=== PATIENT | female | born 1945 | race Caucasian/White ===

== ENCOUNTER 2023-05-15 06:44 | Observation (INO) ==
--- NOTE | 2023-04-11 11:44 | PAT Medication Instructions ---
Medication Instructions Date of Service April 11, 2023 Home Medications amlodipine 10 mg tablet (Norvasc) 10 mg PO QAM apixaban 5 mg tablet (Eliquis) 5 mg PO BID atorvastatin 40 mg tablet (Lipitor) 40 mg PO QAM levothyroxine 50 mcg tablet 50 mcg PO QAM losartan 25 mg tablet (Cozaar) 25 mg PO QAM metformin 500 mg tablet 500 mg PO BID ASK your prescriber and surgeon apixaban 5 mg tablet (Eliquis) 5 mg PO BID (in order to get spinal anesthesia- will need to hold Eliquis/apixaban at least 72 hours prior to surgery) DO NOT take the morning of surgery losartan 25 mg tablet (Cozaar) 25 mg PO QAM metformin 500 mg tablet 500 mg PO BID Take morning of surgery With a small sip of water, OTHERWISE NOTHING TO EAT OR DRINK AFTER MIDNIGHT: amlodipine 10 mg tablet (Norvasc) 10 mg PO QAM atorvastatin 40 mg tablet (Lipitor) 40 mg PO QAM levothyroxine 50 mcg tablet 50 mcg PO QAM Take evening before surgery metformin 500 mg tablet 500 mg PO BID Other Notes If you have any questions please call us at [phone] or [phone] or [phone] or [phone]
--- NOTE | 2023-04-16 15:15 | Anesthesiology Consultation ---
Date of Service April 16, 2023 Assessment & Plan (1) Encounter for pre-operative examination: - awaiting echocardiogram. - per cardiology, there is no previous echocardiogram on file. Patient will need echocardiogram prior to surgery. Patient made aware at PAT visit. Optimization form to be faxed to cardiology. Case discussed with Dr. Rossi in detail who advised patient does not need cardiology evaluation prior to surgery if echocardiogram is not significantly abnormal. Surgeon's office made aware. - check BSG am DOS. - upcoming 05/02/23 Dr. Raciel Arana medical pre-operative evaluation. - PAT testing to be faxed to PCP and cardiology for continuity of care. - cardiology office visit 12/2021 with recommendation for patient to f/u in 1 year. Note and case discussed with Dr. Rossi who advised patient needs updated echocardiogram as above. Cardiology office relayed they do not have a stress, echo, cardiac catheterization or carotid imaging on patient. - Eliquis instructions: In order for spinal or epidural anesthesia, Eliquis needs to be stopped 72 hours/3 days before surgery. Patient will check if this is okay with doctor that prescribes this to her. - Outpatient joint assessment: Patient is currently scheduled for inpatient pathway. If re-evaluated and patient/surgeon requests outpatient pathway, patient is not recommended candidate for outpatient joint program from anesthesia standpoint. Chart Review Chart Review: Pending: Refer to Additional Notes / Consult section and Patient seen in Pre Admission Testing Teaching & Discussion Pre-Anesthesia Teaching/Discussion Notes: Instructed NPO after midnight before surgery, except medications with 15 cc of water. Medication instructions provided according to the PAT guidelines. History Surgery Operation Date: 05/15/23 11:35 Proposed Procedures p Right Total Knee Arthroplasty - Jackson Ferrara DO Height/Weight Height: 5 ft 3 in Weight: 98.9 kg Allergies Allergy/AdvReac Type Severity Reaction Status Date / Time No Known Allergies Allergy Verified 04/10/23 13:45 Medications Home Medications Medication Instructions Recorded Confirmed Last Taken amlodipine 10 mg tablet (Norvasc) 10 mg PO QAM 04/10/23 04/10/23 Unknown apixaban 5 mg tablet (Eliquis) 5 mg PO BID 04/10/23 04/10/23 Unknown atorvastatin 40 mg tablet (Lipitor) 40 mg PO QAM 04/10/23 04/10/23 Unknown levothyroxine 50 mcg tablet 50 mcg PO QAM 04/10/23 04/10/23 Unknown losartan 25 mg tablet (Cozaar) 25 mg PO QAM 04/10/23 04/10/23 Unknown metformin 500 mg tablet 500 mg PO BID 04/10/23 04/10/23 Unknown Past Medical History Medical History History of staph infection 2020, right great toe GERD (gastroesophageal reflux disease) infrequent, stable per pt Vertigo controlled, stable per pt History of gout last flare several yrs ago History of degenerative disc disease Cervical polyp hx Hypothyroidism DM type 2 (diabetes mellitus, type 2) NIDDM HLD (hyperlipidemia) HTN (hypertension) controlled, stable per pt Cardiac murmur denies previous echo Atrial fibrillation on Eliquis. Follows with Dr. Brady [facility] cardiology. Patient denies h/o stroke, seizures, heart attack, heart failure, blood clots/DVTs or blood transfusions. Exercise / Class Metabolic Activity II 4-5 Yardwork/Stairs/Walk up hill (denies chest discomfort or shortness of breath with 1 FOS) Past Family History Family History Other No family history of adverse response to anesthesia Past Surgical History Surgical History History of left knee replacement 2004 History of tooth extraction History of cataract surgery History of cervical polypectomy Past Anesthesia History No Hx of Anesthesia Complications and No Family Hx of Anesthesia Complications History of PONV No Hx of PONV and No Hx of Motion Sickness Social History Smoking Status: Never smoker Do You Dip or Chew Tobacco: No Hx Alcohol Use: Yes alcohol intake frequency: holidays/special occasions only Hx Substance Use: No substance use type: does not use Review of Systems Snoring, denies witnessed apneas. Patient denies chest pain, shortness of breath, dyspnea on exertion, presyncope, fever, chills, cough, wheezing, or palpitations. Physical Exam Vital Signs Vitals BP 126/81 P 56 TEMP 98.2 SP02 94% on RA RESP 17 Physical Patient resting comfortably in chair in no acute distress, alert and oriented, responding appropriately throughout visit Full cervical extension range of motion without pain TMD 3.5 finger breadths Mallampati Score 2 Dentition: intact, denies chipped or loose teeth, caps/crowns, implants or bridges Lungs: normal respiratory effort. Good air movement, clear throughout to auscultation, no adventitious breath sounds Cardiac: regular rate and rhythm, 2/6 systolic murmur-no gallops or rubs Carotid arteries: negative bruit bilat Lab Results Anesthesia Preop Results Results Anesthesia Widget: WBC 7.14 K/ul (4.8-10.8) 04/16/23 Hgb 14.0 g/dl (12.0-16.0) 04/16/23 Hct 41.2 % (37.0-47.0) 04/16/23 Plt 146 K/uL (130-400) 04/16/23 Na 140 mmol/L (136-145) 04/16/23 K 4.4 mmol/L (3.5-5.1) 04/16/23 Cl 106 mmol/L (98-107) 04/16/23 CO2 29 mmol/L (21-32) 04/16/23 BUN 15 mg/dl (6-23) 04/16/23 Creat 0.78 mg/dl (0.6-1.2) 04/16/23 Glucose Level 93 mg/dl (70-99(Fasting)) 04/16/23 PT 10.5 Seconds (9.0-12.0) 04/16/23 PTT 29 Seconds (21-31) 04/16/23 INR 1.0 (0.9-1.1) 04/16/23 HA1c 5.9 % (4.5-5.6) H 04/16/23 Urine Color Yellow 04/16/23 Urine Appearance Clear (Clear) 04/16/23 Urine pH 5.5 (4.5-7.5) 04/16/23 Urine Specific [place] 1.013 (1.000-1.030) 04/16/23 Urine Protein Negative (Negative) 04/16/23 Urine Glucose (UA) Negative (Negative) 04/16/23 Urine Ketones Negative (Negative) 04/16/23 Urine Blood Trace (Negative) H 04/16/23 Urine Nitrite Negative (Negative) 04/16/23 Urine Bilirubin Negative (Negative) 04/16/23 Urine Urobilinogen Negative (Negative) 04/16/23 Urine Leukocyte Esterase 2+ (Negative) H 04/16/23 Urine WBC (Auto) 10-30 /hpf (0-5) H 04/16/23 Urine RBC (Auto) 0-4 /hpf (0-4) 04/16/23 Urine Hyaline Casts (Auto) 0 /lpf (0-5) 04/16/23 Urine Epithelial Cells (Auto) 10-20 /lpf (0-5) H 04/16/23 Urine Bacteria (Auto) Negative (Negative) 04/16/23 Blood Type O Negative 04/16/23 Antibody Screen NEGATIVE 04/16/23 Testing Electrocardiogram Date: 04/16/23 Sinus bradycardia with 1st degree AV block, rate 57 bpm Low voltage QRS Nonspecific T wave abnormality
--- NOTE | 2023-04-18 10:26 | History & Physical Report ---
Date of Service April 18, 2023 date of surgery: 05/15/23 Procedure: Right Total Knee Arthroplasty Surgeon: Jackson Ferrara, DO Assessment & Plan (1) Arthritis of right knee: Plan: Patient presents for evaluation of continued right knee pain, is been ongoing for many years now gradually affecting her daily activities including walking standing using stairs. Reviewed her x-rays which show advanced degenerative changes to her right knee, she has a history of a left total knee arthroplasty [place] [address]ara. At this point would recommend right total knee arthroplasty, we will plan on [employer] patient-matched right total knee. She does live alone therefore would recommend overnight stay at the hospital and she will be staying with her daughter postoperatively. She also takes Eliquis for A-fib, would recommend cardiac clearance prior to the surgery. She otherwise has no other questions or concerns The risks and benefits have been discussed including, but not limited to, risk of infection, nerve injury, stiffness, loss of motion, failure to improve, etc. Reasonable outcomes and options of treatment were discussed. An explanation of appropriate alternatives to the procedure that may be advantageous were discussed and their risks and benefits, as well as the risks and benefits of not proceeding with treatment. I offered to answer any additional inquiries concerning the treatment involved. All the patient's questions were answered. The patient is agreeable, understanding of the treatment plan and alternatives, and wishes to proceed with the treatment plan. History of Present Illness Chief Complaint: Right knee pain Primary Care Provider: Raciel Chaves is a pleasant 77-year-old female who presented for preop evaluation prior to upcoming right total knee arthroplasty. She is a longstanding history of right knee pain which is gradually worsened and is now affecting her daily activities including walking standing using stairs. She is a history of a left total knee replacement many years ago. She takes anticoagulants and therefore unable to take anti-inflammatories, she has used Tylenol for discomfort as well as injections in the knee with no improvement. This point time is failed conservative measures and wishes to proceed with a right total knee arthroplasty Allergies Allergy/AdvReac Type Severity Reaction Status Date / Time No Known Allergies Allergy Verified 04/10/23 13:45 Home Medications Medication Instructions Recorded Confirmed Type amlodipine 10 mg tablet (Norvasc) 10 mg PO QAM 04/10/23 04/10/23 History apixaban 5 mg tablet (Eliquis) 5 mg PO BID 04/10/23 04/10/23 History atorvastatin 40 mg tablet (Lipitor) 40 mg PO QAM 04/10/23 04/10/23 History levothyroxine 50 mcg tablet 50 mcg PO QAM 04/10/23 04/10/23 History losartan 25 mg tablet (Cozaar) 25 mg PO QAM 04/10/23 04/10/23 History metformin 500 mg tablet 500 mg PO BID 04/10/23 04/10/23 History Past Med/Surg History Medical History History of staph infection 2020, right great toe GERD (gastroesophageal reflux disease) infrequent, stable per pt Vertigo controlled, stable per pt History of gout last flare several yrs ago History of degenerative disc disease Cervical polyp hx Hypothyroidism DM type 2 (diabetes mellitus, type 2) NIDDM HLD (hyperlipidemia) HTN (hypertension) controlled, stable per pt Cardiac murmur denies previous echo Atrial fibrillation on Eliquis. Follows with Dr. Brady [facility] cardiology. 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 Basic Required: No Beliefs That Will Affect Care: None Current Living Situation: Alone Feels Safe at Home: Yes Assistive Devices: None Review of Systems Review of Systems: All systems reviewed & are unremarkable except as noted in HPI & below Constitutional: no fever, no chills and no sweats Respiratory: no cough and no dyspnea Cardiovascular: no chest pain, no dyspnea and no orthopnea Gastrointestinal: no abdominal pain, no nausea and no vomiting Musculoskeletal: as per Subjective / HPI Physical Exam Physical Exam: HT 5ft 3in WT: 98.9kg Constitutional: WD/WN, vitals as above no acute distress Respiratory: normal respiratory effort, lungs clear to auscultation no respiratory distress, no labored breathing and does not use accessory muscles Cardiovascular: RRR, no murmur, no edema Gastrointestinal (Abdomen): normal bowel sounds, soft, nontender, no hepatosplenomegaly Musculoskeletal: Knee: + knee abnormal to inspection (RIGHT KNEE), + effusion (+1 effusion), + limited ROM of knee (ROM 0/3/110), + knee ROM with crepitation, + joint line tenderness (medial joint line) and + Emanuel's sign positive; no deformity, no skin erythema, no ecchymosis, no valgus laxity, no varus laxity, anterior drawer test negative, Steph's sign negative and pivot shift test negative Results & Data Results & Data Diagnostic Findings Right Knee X-ray: Right knee series showing advanced degenerative changes to the right knee, narrowing of the medial compartment and patello-femoral joint with patellar spurring noted, findings showing joint space narrowing of the medial compartment and patello-femoral joint, osteophyte formation and subchondral sclerosis noted. overall varus alignment. no acute bony pathology noted.
[~2023-05-15 06:44] MED LIST: ACETAMINOPHEN 500 MG TAB PO SCH; BUPIVACAINE 0.5 % 5 MG/1 ML PF 10ML VIAL ONE; CeleBREX 200 MG CAP PO SCH; EPINEPHrine INJ 1 MG/ML AMP ONE; FAMOTIDINE 20 MG TAB PO SCH; GABAPENTIN 300 MG CAP PO SCH; LR 500ML BOLUS, THEN 15ML/HR IV SCH; LR 60ML/HR IV SCH; ROPIV 0.5% 246mg, Ketorolac 30mg, EPINEPHrine 0.5mg in NSS INFIL SCH; ROPIVACAINE 0.5% 5 MG/ML 30 ML VIAL ONE; ceFAZolin 2000MG 2,000 MG/15 ML SYR IV SCH; dexAMETHasone**PF** 10 MG/ML VIAL IV SCH
[2023-05-15] MEDS ORDERED: PROPOFOL IV EMULSION 10 MG/ML 20 ML VIAL IV ONE (06:56)
[2023-05-15] MEDS ORDERED: ONDANSETRON INJ 2 MG/ML 2 ML VIAL ONE (06:56)
[2023-05-15] MEDS ORDERED: MIDAZOLAM HCL 1 MG/ML 2ML VIAL ONE (06:56)
[2023-05-15] MEDS ORDERED: fentaNYL citrate PF 100 MCG/2 ML VIAL ONE (06:56)
[2023-05-15] MEDS ORDERED: LIDOCAINE 2% 2 ML VIAL/AMP(20MG/ML) INFIL ONE (06:56)
[2023-05-15] MEDS ORDERED: ORTHO JOINT ANESTHETIC ONE (07:12)
--- NOTE | 2023-05-15 07:26 | History & Physical Bridge Note ---
Date of Service May 15, 2023 History & Physical Bridge Note I have examined the patient, reviewed the History & Physical and in the interval since the performance of the History & Physical I have noted the following changes of clinical significance: no changes noted
[2023-05-15] MEDS ORDERED: TRANEXAMIC ACID / 0.7% NACL 1000MG/100ML BAG IV ONE (08:36)
[2023-05-15] MEDS ORDERED: TRANEXAMIC ACID / 0.7% NACL 1,000 MG/100 ML BAG IV ONE ×2 (08:40)
[2023-05-15] MEDS ORDERED: FLUMAZENIL 0.1 MG/1 ML 10 ML VIAL IV PRN (09:43)
[2023-05-15] MEDS ORDERED: PROMETHAZINE HCL 12.5 MG in SODIUM CHLORIDE 0.9% 50 ML IV PRN (09:43)
[2023-05-15] MEDS ORDERED: ATROPINE SULFATE 0.1 MG/ML 10ML SYR IV PRN (09:43)
[2023-05-15] MEDS ORDERED: NALOXONE HCL 0.4 MG/1 ML VIAL/CARP IV PRN ×2 (09:43→11:58)
[2023-05-15] MEDS ORDERED: ONDANSETRON INJ 2 MG/ML 2 ML VIAL IV PRN ×2 (09:43→11:58)
[2023-05-15] MEDS ORDERED: fentaNYL citrate PF 100 MCG/2 ML VIAL IV PRN (09:43)
[2023-05-15] MEDS ORDERED: ePHEDrine sulfate 50 MG/ML AMP IV PRN (09:43)
--- NOTE | 2023-05-15 10:06 | Operative Report ---
Post Operative Report Pre & Post Diagnosis Operation Date: 05/15/23 08:25 Pre-Op Diagnosis: Right Knee Osteoarthritis Post-Op Diagnosis: Right Knee Osteoarthritis I identified the patient and participated in the time-out.: Yes Procedure Operation Date: 05/15/23 08:25 Actual Procedures p Right Total Knee Arthroplasty(Right)Utilizing [employer] journey 2 patient-matched total knee arthroplasty the size femur 4 tibia 4 poly 10 patella 29 eliceo - Jackson Ferrara DO Surgeon Jackson Ferrara DO Sampler And Test Preparer Josué DOMINGUEZ Estimated Blood Loss 5 Findings Consistent with Post-Op Diagnosis Patient presents with severe end-stage tricompartmental degenerative joint disease nonresponse to conservative management eburnated [id number] marginal osteophytes moderate to large effusion Specimens Bone and cartilage Drains Medium bore Hemovac Anesthesia Type MAC Spinal Regional Complications none Disposition Accompanied Patient To Recovery: No Disposition: Recovery Room Indications Patient presents severe end-stage tricompartmental degenerative joint disease nonresponse to conservative management above intraoperative findings were noted at time of surgery. Patient's failed attempted conservative management occluding physical therapy anti-inflammatories relative rest activity modification corticosteroid injection viscosupplementation Description of Procedure After proper prepping and draping of the Right lower extremity anterior midline incision was made over the region of the extensor extensor mechanism after meticulous hemostasis was obtained and maintained in subcutaneous tissues a medial parapatellar incision was made The patella was subluxed lateralward the medial lateral gutter were cleaned from any hypertrophic synovitis and scar tissue of the distal femoral block was placed and the distal femoral osteotomy cut was made subsequently the chamfers anterior and posterior osteotomy cuts were made utilizing the 4-in-1 block the tibia was subsequently subluxed anteriorward medial and ateral meniscal remnants were excised in their entirety remnants of the anterior and posterior cruciate ligaments were excised in their entirety excellent exposure of the proximal tibia was obtained the tibial osteotomy guide was placed on the proximal tibial osteotomy cut was made once again the knee was irrigated with copious amounts of sterile saline solution the patella was subsequently everted lateralward thickened scar tissue around the patella was removed the patella was subsequently cut utilizing a freehand technique and was drilled prepared for final preparation and placement of patella socially flexion-extension gaps were checked and the equal and symmetric trials were placed to the appropriate femoral and tibial trials with poly-spacer being placed for equal flexion and extension gaps and full range of motion including extension to 0 and flexion to 140 the trial components after having been taken to recovery range of motion was subsequently removed meticulous hemostasis was obtained and maintained subsequently a knee block injection of joint cocktail including ropivacaine 0.5% 150 mg. Bupivacaine 0.5% epinephrine 1-200,030 mL's toradol 30 mg dexamethasone 4 mg ketamine 10 mg clonidine 100 micrograms normal saline solution 30 mg was infiltrated into the soft tissues of the posterior knee medial lateral gutters and periosteal synovium special attention was paid to protect neurovascular structures at all times subsequently trial components having been removed the knee was irrigated with sterile saline solution. debris was removed the proximal tibia was subsequently prepared and was made ready for the placement of the tibial component tibial component was also cemented and tamped into position the femoral component was subsequently placed and cemented in the position the patellar component was subsequently cemented in position because hemostasis once again obtained and maintained wound having been thoroughly irrigated with debridement and debridement lavage was performed as well as a medial parapatellar incision closed with #1 Vicryl in in terrupted fashion subcutaneous was closed with #2 Vicryl skin was closed with skin clips. PA-C was necessary for prepping and drapping as well as wound closure of deep fascia Sub cutaneous tissue and skin and was necessary for the case. A sterile compressive dressing was placed patient was taken to recovery in stable condition of report dictated by Josias I attest to the content of the Intraoperative Record and any orders documented therein. Any exceptions are noted below.Due to the complex nature of the procedure, the entire surgery was performed with the operational assistance of ALBERTO Moyer. The foundation assistant, under direct supervision, was involved in the actual performance of all aspects of the surgical procedure including hemostasis, tissue retraction and incision, instrument management, patient positioning, and wound closure. I attest to the content of the Intraoperative Record and any orders documented therein. Any exceptions are noted below.
--- NOTE | 2023-05-15 11:19 | Operative Report ---
Post Operative Report Pre & Post Diagnosis Operation Date: 05/15/23 08:25 Pre-Op Diagnosis: Right Knee Osteoarthritis Post-Op Diagnosis: Right Knee Osteoarthritis I identified the patient and participated in the time-out.: Yes Procedure Operation Date: 05/15/23 08:25 Actual Procedures p Right Total Knee Arthroplasty(Right) utilizing [employer] journey 2 patient-matched total knee arthroplasty size femur 4 tibia 3 poly 11 patella 29 eliceo- Jackson Ferrara DO Surgeon Jackson Frerara DO Resident Care Coordinator Josué DOMINGUEZ Estimated Blood Loss 5 Findings Consistent with Post-Op Diagnosis Patient presents with severe end-stage DJD the above intraoperative findings were noted subchondral sclerosis marginal osteophytes 10 degree flexion contracture moderate to large effusion Specimens Bone and Drains Medium bore Hemovac Anesthesia Type MAC Spinal Regional Complications none Disposition Accompanied Patient To Recovery: No Disposition: Recovery Room Indications Patient presents with severe end-stage DJD nonresponse to conservative management occluding physical therapy anti-inflammatories relative rest activity modification corticosteroid injection viscosupplementation above intraoperative findings were noted Description of Procedure After proper prepping and draping of the left lower extremity anterior midline incision was made over the region of the extensor extensor mechanism after meticulous hemostasis was obtained and maintained in subcutaneous tissues a medial parapatellar incision was made The patella was subluxed lateralward the medial lateral gutter were cleaned from any hypertrophic synovitis and scar tissue of the distal femoral block was placed and the distal femoral osteotomy cut was made subsequently the chamfers anterior and posterior osteotomy cuts were made utilizing the 4-in-1 block the tibia was subsequently subluxed anteriorward medial and ateral meniscal remnants were excised in their entirety remnants of the anterior and posterior cruciate ligaments were excised in their entirety excellent exposure of the proximal tibia was obtained the tibial ost eotomy guide was placed on the proximal tibial osteotomy cut was made once again the knee was irrigated with copious amounts of sterile saline solution the patella was subsequently everted lateralward thickened scar tissue around the patella was removed the patella was subsequently cut utilizing a freehand technique and was drilled prepared for final preparation and placement of patella socially flexion-extension gaps were checked and the equal and symmetric trials were placed to the appropriate femoral and tibial trials with poly-spacer being placed for equal flexion and extension gaps and full range of motion including extension to 0 and flexion to 140 the trial components after having been taken to recovery range of motion was subsequently removed meticulous hemostasis was obtained and maintained subsequently a knee block injection of joint cocktail including ropivacaine 0.5% 150 mg. Bupivacaine 0.5% epinephrine 1-200,030 mL's toradol 30 mg dexamethasone 4 mg ketamine 10 mg clonidine 100 micrograms normal saline solution 30 mg was infiltrated into the soft tissues of the posterior knee medial lateral gutters and periosteal synovium special attention was paid to protect neurovascular structures at all times subsequently trial components having been removed the knee was irrigated with sterile saline solution. debris was removed the proximal tibia was subsequently prepared and was made ready for the placement of the tibial component tibial component was also cemented and tamped into position the femoral component was subsequently placed and cemented in the position the patellar component was subsequently cemented in position because hemostasis once again obtained and maintained wound having been thoroughly irrigated with debridement and debridement lavage was performed as well as a medial parapatellar incision closed with #1 Vicryl in interrupted fashion subcutaneous was closed with #2 Vicryl skin was closed with skin clips. PA-C was necessary for prepping and drapping as well as wound closure of deep fascia Sub cutaneous tissue and skin and was necessary for the case. A sterile compressive dressing was placed patient was taken to recovery in stable condition of report dictated by Josias I attest to the content of the Intraoperative Record and any orders documented therein. Any exceptions are noted below.Due to the complex nature of the pro cedure, the entire surgery was performed with the operational assistance of ALBERTO Moyer the accountant assistant, under direct supervision, was involved in the actual performance of all aspects of the surgical procedure including hemostasis, tissue retraction and incision, instrument management, patient positioning, and wound closure. I attest to the content of the Intraoperative Record and any orders documented therein. Any exceptions are noted below.
--- NOTE | 2023-05-15 11:34 | Anesthesiology Progress Note ---
Date of Service May 15, 2023 Anesthesia Post Procedure Vital Signs Vital Signs: Temp Pulse Pulse Resp BP Pulse Ox O2 Del Method 05/15/23 11:15 36.4 C L 64 16 119/54 L 96 Room Air 05/15/23 11:05 67 21 120/55 L 99 Oxymask 05/15/23 10:55 66 16 125/49 L 99 Oxymask 05/15/23 10:45 66 17 111/53 L 100 Oxymask 05/15/23 10:36 36.4 C L 70 12 115/50 L 98 Oxymask 05/15/23 07:22 37.1 C 83 20 142/52 H 96 Room Air O2 Flow Rate 05/15/23 11:15 0 05/15/23 11:05 2 05/15/23 10:55 3 05/15/23 10:45 4 05/15/23 10:36 6 05/15/23 07:22 Pain Intensity Right Knee: Pain Intensity: 0 Transfer of Care Handoff Completed per policy Notes Mental Status: alert / awake / arousable Patient Amnestic to Procedure: Yes Nausea / Vomiting: adequately controlled Pain: adequately controlled Airway Patency, RR, SpO2: stable & adequate BP & HR: stable & adequate Hydration State: stable & adequate Neuraxial Anesthesia: was administered and sensory block is resolving Anesthetic Complications: no major complications apparent
[2023-05-15] MEDS ORDERED: oxyCODONE HCL IR 5 MG TAB (IMMEDIATE RELEASE) PO PRN (11:58)
[2023-05-15] MEDS ORDERED: bisacodyL 10 MG SUPP PR PRN (11:58)
[2023-05-15] MEDS ORDERED: HYDROmorphone INJ 1 MG/ML SYRINGE IV PRN (11:58)
[2023-05-15] MEDS ORDERED: diphenhydrAMINE Capsule 25 MG CAP PO PRN (11:58)
[2023-05-15] MEDS ORDERED: METOCLOPRAMIDE HCL INJ 5 MG/ML 2 ML VIAL IV PRN (11:58)
[2023-05-15] MEDS ORDERED: MAGNESIUM HYDROXIDE SUSP 30 ML UDC PO PRN (11:58)
[2023-05-15] MEDS ORDERED: PHARMACY GLYCEMIC MGMT CONSULT PRN (11:58)
--- NOTE | 2023-05-15 12:10 | Hospitalist Consultation ---
Date of Consultation May 15, 2023 Assessment & Plan (1) S/P right knee surgery: Right total knee arthroplasty with Dr. Ferrara on 05/15/2023 Postop right knee x-ray revealed expected postoperative appearance of total knee arthroplasty Activity: OOB in chair with assistance as tolerated Perioperative antibiotics, DVT PPx, pain management, and fluids per primary team Agree with a.m. CBC, BMP, we will follow PT/OT consulted (2) DM type 2 (diabetes mellitus, type 2): Last A1c at 5.9% on 04/16/2023 Glucose 176 on admission Agree with decision to hold metformin while inpatient T2DM diet Added BSG ACHS while inpatient Adjust regimen as needed (3) Hypothyroidism: Continue levothyroxine (4) HTN (hypertension): Recommend holding amlodipine x 1 day, and restarting on 05/17 Continue losartan (pending a.m. BMP) (5) Atrial fibrillation: Rate controlled SCDs/teds for now; okay from medical standpoint to restart apixaban tomorrow on 05/16 (6) HLD (hyperlipidemia): Continue atorvastatin Plan Agree with medical decision making: Disposition: MedSurg T2DM diet VTE PPx: SCDs/teds for now Thank you for allowing us to persuade in the care of this patient, please reach out with any questions or concerns. Supervising Physician Co-Signing Physician Notes I personally saw and examined the patient. I independently reviewed the pre-op labs, pre-op EKG, problem list, medication list, past medical history and family history. I verified all rosario points and agree with Marquise Verdugo PA-C with the following exceptions and/or additions: 77 year old female POD#0 right total knee arthroplasty. She reports fall to the ground earlier around 8pm. No dizziness, chest pain or dizziness prior to falling - legs just gave way. O/E A&Ox3, HS RRR, no murmurs, Chest CTAB, Abdo SNT, difficulty straightening leg, NV intact distal to operation site A/P VTE/Pain/Bowel management per primary orthopedic team HTN - hold amlodipine until POD#2, can continue losartan tomorrow Otherwise as above History of Present Illness Reason for Consultation: Medical management Requesting Physician: Jackson Ferrara DO Attending Physician: Jackson Ferrara DO History of Present Illness Andie is a pleasant 77yo female with PMH of T2DM, HTN, hypothyroidism, HLD, and A-fib. She presented for a right total knee arthroplasty with Dr. Ferrara on 05/15/2023. Per operative report, EBL was listed as 5 cc, MAC spinal regional anesthesia was used, and medium bore Hemovac drain was placed, and there were no reported intraoperative complications. Patient endorses mild right knee pain at time of consult, which she rates 35/10 prior to receiving her pain medicine. No radiation down the leg or to the back, mild radiation to the right lateral thigh. She denies numbness or tingling in the leg. She characterizes a dull achy pain. Patient reports she has been eating and drinking well postsurgery. She has not tried to use the bathroom yet, nor has a desire to use it. No at home supplemental oxygen use. She reports that she took her regular morning medications as instructed this morning (3 pills); she notes that she has not been taking her Eliquis as instructed, with the last time taken on Thursday 05/11 in anticipation for surgery. She has no new complaints at this time. Per review of patient's vitals, she has been stable postop; SpO2 98% on RA. ROS: Patient endorses mild right knee pain. Patient denies fever, chills, sweating, CARIAS, dizziness, lightheadedness, CP, pleuritic CP, SOB, abdominal pain, N/V/D, urinary s/s, or numbness and tingling in the legs B/L. Allergies Allergy/AdvReac Type Severity Reaction Status Date / Time No Known Allergies Allergy Verified 05/15/23 07:16 Home Medications Medication Instructions Recorded Confirmed Type amlodipine 10 mg tablet (Norvasc) 10 mg PO QAM 04/10/23 05/15/23 History apixaban 5 mg tablet (Eliquis) 5 mg PO BID 04/10/23 05/15/23 History atorvastatin 40 mg tablet (Lipitor) 40 mg PO QAM 04/10/23 05/15/23 History levothyroxine 50 mcg tablet 50 mcg PO QAM 04/10/23 05/15/23 History losartan 25 mg tablet (Cozaar) 25 mg PO QAM 04/10/23 05/15/23 History metformin 500 mg tablet 500 mg PO BID 04/10/23 05/15/23 History acetaminophen 500 mg tablet 1,000 mg (2 x 500 mg) PO Q8 pain 05/16/23 Rx 21 days #126 tabs cefadroxil 500 mg capsule 500 mg PO BID 14 days #28 caps 05/16/23 Rx docusate sodium 100 mg capsule 100 mg PO BID #20 caps 05/16/23 Rx oxycodone 5 mg tablet 5 - 10 mg (1 - 2 x 5 mg) PO Q6H 05/16/23 Rx PRN pain #30 tabs Patient History Medical History (Updated 05/15/23 @ 12:20 by Marquise Verdugo PA-C) GERD (gastroesophageal reflux disease) infrequent, stable per pt History of staph infection 2020, right great toe Vertigo controlled, stable per pt History of gout last flare several yrs ago History of degenerative disc disease Cervical polyp hx Hypothyroidism DM type 2 (diabetes mellitus, type 2) NIDDM HLD (hyperlipidemia) HTN (hypertension) controlled, stable per pt Cardiac murmur denies previous echo Atrial fibrillation on Eliquis. Follows with Dr. [facility] cardiology. 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 Pan Operator Required: No Beliefs That Will Affect Care: None Current Living Situation: Alone Feels Safe at Home: Yes Safety Concerns: Feels Safe At This Time Assistive Devices: None Review of Systems Review of Systems: See HPI above Physical Exam 2 Physical Exam: General: no acute distress; pleasant affect; non-toxic appearing; well- nourished; cooperative HEENT: normocephalic, atraumatic; no scleral icterus; PERRLA w/ EOMs intact; moist mucus membrane; vision and hearing grossly intact Neck: supple; no JVD; no lymphadenopathy; trachea midline Skin: warm, dry without signs of tenting; no cyanosis; no rashes, bruising, lesions, or erythema noted CV: chest wall NTP; RRR; S1/S2 normal; no murmurs/rubs/gallops; pulses intact and symmetric at radial, DP, and PT Lungs: no acute respiratory distress; symmetrical chest wall expansion; clear breath sounds across all lung zazueta w/o adventitious sounds; no wheezing ABD: Soft, NTP; BS present; no rebound/guarding; no ascites; no distention; negative CVA tenderness MSK: no tics or fasciculations; no edema noted in the LEs b/l (SCDs/teds in place); patient demonstrates ability to wiggle toes bilaterally; good pulses in the right foot (neurovascular intact) Neuro: A&Ox3; normal mood and affect; fluent speech; no focal deficits; patient endorses bilateral, symmetric sensation in the feet assessed via light touch at the toes Results & Data Results & Data Vital Signs (Past 12 Hours) Vital Signs Temp Pulse Pulse Resp BP Pulse Ox O2 Del Method 05/15/23 11:15 36.4 C L 64 16 119/54 L 96 Room Air 05/15/23 11:05 67 21 120/55 L 99 Oxymask 05/15/23 10:55 66 16 125/49 L 99 Oxymask 05/15/23 10:45 66 17 111/53 L 100 Oxymask 05/15/23 10:36 36.4 C L 70 12 115/50 L 98 Oxymask 05/15/23 07:22 37.1 C 83 20 142/52 H 96 Room Air O2 Flow Rate 05/15/23 11:15 0 05/15/23 11:05 2 05/15/23 10:55 3 05/15/23 10:45 4 05/15/23 10:36 6 05/15/23 07:22 Laboratory Results Abnormal lab results 05/15/23 05/15/23 05/15/23 Range/Units 07:16 10:39 11:51 POC Glucose 125 H 154 H 176 H (70-99) mg/dl Diagnostic Findings Knee X-Ray 05/15/23 10:42 XR knee RT 1 or 2V routine CLINICAL HISTORY: Surgical Post Op TECHNIQUE: 2 views of the right knee were obtained. Comparison: None available at the time of this dictation. FINDINGS: Patient is status post total knee arthroplasty with expected postsurgical changes including soft tissue swelling and subcutaneous emphysema. No periarticular lucency or hardware fracture is seen. IMPRESSION: Expected postoperative appearance status post placement of total knee arthroplasty. ACT 112: Negative or not required by law. Electronically signed by: Buzz Foster M.D. 05/15/2023 12:25 PM PG Care Time/CCT Total # of Minutes Spent Total Time Spent with Patient: Total time spent is greater than 50% in coordination of care (as documented) at patient's floor/unit and/or counseling patient: [place] [address] IN/OBS CONSULT LVL 3,45M Patient Type New Medical Decision Making Low Complexity Diagnoses S/P right knee surgery Z98.890 DM type 2 (diabetes mellitus, type 2) E11.9 Hypothyroidism E03.9 HTN (hypertension) I10 Atrial fibrillation I48.91 HLD (hyperlipidemia) E78.5
--- NOTE | 2023-05-15 12:26 | XRay Report ---
XR knee RT 1 or 2V routine CLINICAL HISTORY: Surgical Post Op TECHNIQUE: 2 views of the right knee were obtained. Comparison: None available at the time of this dictation. FINDINGS: Patient is status post total knee arthroplasty with expected postsurgical changes including soft tiss ue swelling and subcutaneous emphysema. No periarticular lucency or hardware fracture is seen. IMPRESSION: Expected postoperative appearance status post placement of total knee arthroplasty. ACT 112: Negative or not required by law. Electronically signed by: Buzz Foster M.D. 05/15/2023 12:25 PM
[2023-05-15] MEDS: KETOROLAC TROMETHAMINE 15 MG/ML VIAL IV SCH ×2 (12:39→17:58)
[2023-05-15] MEDS ORDERED: CARBOHYDRATES FOR HYPOGLYCEMIA PO PRN (12:45)
[2023-05-15] MEDS ORDERED: DEXTROSE 50% 50 ML SYRINGE IV PRN (12:45)
[2023-05-15] MEDS ORDERED: GLUCOSE 40% GEL 15 GM TUBE PO PRN (12:45)
[2023-05-15] MEDS ORDERED: GLUCOSE 10 TAB/TUBE PO PRN (12:45)
[2023-05-15] MEDS ORDERED: GLUCAGON FOR INJ 1 MG VIAL IM PRN (12:45)
[2023-05-15] MEDS: SODIUM CHLORIDE 0.9% 1,000 ML IV SCH ×2 (12:59→20:20)
[2023-05-15] MEDS: INSULIN ASPART PER UNIT CHARGE SC SCH ×3 (13:05→20:58)
[2023-05-15] MEDS: ACETAMINOPHEN 500 MG TAB PO SCH ×2 (13:43→21:00)
--- NOTE | 2023-05-15 14:23 | Pharmacy Report ---
Pharmacy Glycemic Short Note 2 - Date of Service May 15, 2023 - Glycemic Short BSG Results (Last 24 hours): 05/15/23 05/15/23 05/15/23 07:16 10:39 11:51 POC Glucose 125 H 154 H 176 H OUTPATIENT ANTIDIABETIC REGIMEN: * Metformin 500 mg PO BID * HbA1c = 5.9% on 04/16/23 ASSESSMENT: * 77 y/o F admitted for R TKA today. She has history of Type 2 diabetes well controlled on oral Metformin only at home. * Patient received IV Dexamethasone 10 mg x 1 dose this AM pre-op. Expecting BSGs to rise later today. * Novolog ordered with lunch today with loose parameters (stress between 1 and 2). * Basal insulin ordered on a scale based on BSG with dinner today. PLAN FOR INPATIENT GLYCEMIC CONTROL: * Hold outpatient oral diabetes medications * Basal insulin * Lantus 0-10 units SQ with dinner based on BSG (see EMR for details) * Bolus insulin * NovoLog per scale ACHS or Q6hrs while NPO * Goal Range: Low 110 mg/dL - High 140 mg/dL * Correction Factor: 30 mg/dL/unit * Nutritional / Prandial insulin per carb ratio of 1 unit per 10 grams CHO consumed
[2023-05-15] MEDS ORDERED: LANTUS PER UNIT CHARGE SC SCH (17:00)
[2023-05-15] MEDS: ceFAZolin 2000MG 2,000 MG/15 ML SYR IV SCH (17:58)
[2023-05-15] MEDS: DOCUSATE SODIUM 100 MG CAP PO SCH (19:19)
[2023-05-15] MEDS ORDERED: SENNA 8.6 MG TAB PO SCH (21:00)
[2023-05-16] MEDS: KETOROLAC TROMETHAMINE 15 MG/ML VIAL IV SCH ×2 (00:18→05:22)
[2023-05-16] MEDS: ceFAZolin 2000MG 2,000 MG/15 ML SYR IV SCH (00:18)
[2023-05-16] MEDS: ACETAMINOPHEN 500 MG TAB PO SCH (05:22)
[2023-05-16 06:17] LABS: Hematocrit (blood only) 36.2 % (37.0-47.0); Hemoglobin 12.3 g/dl (12.0-16.0); Mean Corpuscular Hemoglobin 31.1 pg (25.0-34.0); Mean Corpuscular Volume 91.6 fL (80.0-100.0); Platelet Count 132 K/uL (130-400); RDW Coefficient of Variation 12.1 % (11.5-14.5); RDW Standard Deviation 40.7 fL (36.4-46.3); Red Blood Count 3.95 M/uL (4.20-5.40); White Blood Count 15.16 K/ul (4.8-10.8)
[2023-05-16] MEDS ORDERED: LEVOTHYROXINE SODIUM 50 MCG TABLET PO SCH (06:30)
[2023-05-16 06:36] LABS: BUN Creatinine Ratio 24.4 (10-20); Calcium 8.7 mg/dl (8.6-10.3); Creatinine Clr Calc Pharmacy 70.5 ml/min; Est GFR (African American) 86.2 ml/min; Est GFR (Non-African American) 74.4 ml/min; Potassium 4.2 mmol/L (3.5-5.1)
--- NOTE | 2023-05-16 06:55 | Orthopedic Progress Note ---
Date of Service May 16, 2023 Assessment & Plan (1) History of total right knee replacement: Plan: POD #1 s/p Right TKA pt/ot dvt proph with JUDY/SCD/resume Eliquis plan for d/c home with HHPT Admission and Anticipated Discharge Date Admission Date: May 15, 2023 Subjective POD #1 s/p Right TKA Review of Systems Constitutional: no fever, no chills and no sweats Respiratory: no cough and no dyspnea Cardiovascular: no chest pain and no dyspnea Gastrointestinal: no abdominal pain, no nausea and no vomiting Physical Exam Physical Exam: Vital Signs Temp 36.5 C 05/16/23 03:28 Pulse 65 05/16/23 03:28 Resp 16 05/16/23 03:28 BP 117/60 05/16/23 03:28 Pulse Ox 94 05/16/23 03:28 O2 Del Method Room Air 05/16/23 03:28 O2 Flow Rate 0 05/15/23 11:15 Intake & Output 05/15/23 05/15/23 05/16/23 06:59 18:59 06:59 Intake Total 200 / 2048.333 1848.333 / 2048.33 3 Output Total 650 / 2175 1525 / 2175 Balance -450 / -126.667 323.333 / -126.667 Weight 100.6 kg Intake: IV 200 / 3875.869 9135.333 / 1848.33 3 Lactated Ringe r's 1,000 ml @ 15 0 / 0 mls/hr IV .Q24 H GAUTAM Rx#: [id number] Sodium Chlorid e 0.9% 1,000 ml @ 1648.333 / 1648.33 3 100 mls/hr IV .Q10H GAUTAM Rx#: [id number] Tranexamic Aci d / 0.7% NaCl 1, 200 / 200 000 mg In 100 ml @ 600 mls/hr IV ONE ONE Rx# :[id number] Oral 200 / 200 Output: Urine 600 / 1900 1300 / 1900 Drain Output 50 / 275 225 / 275 Right Knee 50 / 275 225 / 275 Other: # Unmeasured Voi ds 1 Weight Measureme nt Method Standing Scale Musculoskeletal: Right Leg: NVDI, calf SNT, negative olya sign. DP palpable, able to wiggle toes/ankle movement without difficulty. dressing clean dry and intact. Results & Data Vital Signs (Past 12 Hours) Vital Signs Temp Pulse Resp BP Pulse Ox O2 Del Method 05/16/23 03:28 36.5 C 65 16 117/60 94 Room Air 05/15/23 23:36 36.5 C 64 16 99/60 L 95 Room Air 05/15/23 19:25 36.3 C L 50 L 16 118/62 96 Room Air Laboratory Results Laboratory Results WBC 15.16 K/ul (4.8-10.8) H 05/16/23 05:29 RBC 3.95 M/uL (4.20-5.40) L 05/16/23 05:29 Hgb 12.3 g/dl (12.0-16.0) 05/16/23 05:29 Hct 36.2 % (37.0-47.0) L 05/16/23 05:29 MCV 91.6 fL (80.0-100.0) 05/16/23 05:29 MCH 31.1 pg (25.0-34.0) 05/16/23 05:29 MCHC 34.0 g/dL (32.0-36.0) 05/16/23 05:29 RDW Std Deviation 40.7 fL (36.4-46.3) 05/16/23 05:29 RDW Coeff of [place] 12.1 % (11.5-14.5) 05/16/23 05:29 Plt Count 132 K/uL (130-400) 05/16/23 05:29 MPV 10.0 fL (9.4-12.4) 05/16/23 05:29 Sodium 138 mmol/L (136-145) 05/16/23 05:29 Potassium 4.2 mmol/L (3.5-5.1) 05/16/23 05:29 Chloride 107 mmol/L (98-107) 05/16/23 05:29 Carbon Dioxide 23 mmol/L (21-32) 05/16/23 05:29 Anion Gap 8 (3-11) 05/16/23 05:29 BUN 19 mg/dl (6-23) 05/16/23 05:29 Creatinine 0.78 mg/dl (0.6-1.2) 05/16/23 05:29 Est Cr Clr Drug Dosing 70.5 ml/min 05/16/23 05:29 Est GFR ( Amer) 86.2 ml/min 05/16/23 05:29 Est GFR (Non-Af Amer) 74.4 ml/min 05/16/23 05:29 BUN/Creatinine Ratio 24.4 (10-20) H 05/16/23 05:29 Glucose 156 mg/dl (70-99(Fasting)) H 05/16/23 05:29 POC Glucose 261 mg/dl (70-99) H 05/15/23 20:49 Calcium 8.7 mg/dl (8.6-10.3) 05/16/23 05:29 Impressions Knee X-Ray 05/15/23 10:42 XR knee RT 1 or 2V routine CLINICAL HISTORY: Surgical Post Op TECHNIQUE: 2 views of the right knee were obtained. Comparison: None available at the time of this dictation. FINDINGS: Patient is status post total knee arthroplasty with expected postsurgical changes including soft tissue swelling and subcutaneous emphysema. No periarticular lucency or hardware fracture is seen. IMPRESSION: Expected postoperative appearance status post placement of total knee arthroplasty. ACT 112: Negative or not required by law. Electronically signed by: Buzz Foster M.D. 05/15/2023 12:25 PM
--- NOTE | 2023-05-16 07:00 | Discharge Summary ---
Date of Service date of discharge: May 16, 2023 date of admission: 05/15/23 Admission HPI Per Admitting Provider Andie is a pleasant 77-year-old female who presented for preop evaluation prior to upcoming right total knee arthroplasty. She is a longstanding history of right knee pain which is gradually worsened and is now affecting her daily activities including walking standing using stairs. She is a history of a left total knee replacement many years ago. She takes anticoagulants and therefore unable to take anti-inflammatories, she has used Tylenol for discomfort as well as injections in the knee with no improvement. This point time is failed conservative measures and wishes to proceed with a right total knee arthroplasty Principal Diagnosis right total knee replacement Discharge Exam Vital Signs Temp Pulse Pulse Resp BP Pulse Ox O2 Del Method 05/16/23 03:28 36.5 C 65 16 117/60 94 Room Air 05/15/23 23:36 36.5 C 64 16 99/60 L 95 Room Air 05/15/23 19:25 36.3 C L 50 L 16 118/62 96 Room Air 05/15/23 15:23 36.3 C L 66 18 115/70 98 Room Air 05/15/23 13:40 69 18 123/67 98 Room Air 05/15/23 12:35 68 18 124/61 98 Room Air 05/15/23 12:10 36.5 C 75 16 115/67 96 Room Air 05/15/23 11:40 36.4 C L 67 16 113/64 96 Room Air 05/15/23 11:15 36.4 C L 64 16 119/54 L 96 Room Air 05/15/23 11:05 67 21 120/55 L 99 Oxymask 05/15/23 10:55 66 16 125/49 L 99 Oxymask 05/15/23 10:45 66 17 111/53 L 100 Oxymask 05/15/23 10:36 36.4 C L 70 12 115/50 L 98 Oxymask 05/15/23 07:22 37.1 C 83 20 142/52 H 96 Room Air O2 Flow Rate 05/16/23 03:28 05/15/23 23:36 05/15/23 19:25 05/15/23 15:23 05/15/23 13:40 05/15/23 12:35 05/15/23 12:10 05/15/23 11:40 05/15/23 11:15 0 05/15/23 11:05 2 05/15/23 10:55 3 05/15/23 10:45 4 05/15/23 10:36 6 05/15/23 07:22 Intake and Output 05/15/23 05/16/23 05/16/23 22:59 06:59 14:59 Intake Total 735 / 2048.333 1113.333 / 2048.333 Output Total 1500 / 2175 675 / 2175 Balance -765 / -126.667 438.333 / -126.667 Intake: IV 735 / 1848.333 913.333 / 1848.333 Sodium Chloride 0.9% 1,000 ml @ 735 / 1648.333 913.333 / 1648.333 100 mls/hr IV .Q10H GAUTAM Rx#: [id number] Oral 200 / 200 Output: Urine 1350 / 1900 550 / 1900 Drain Output 150 / 275 125 / 275 Right Knee 150 / 275 125 / 275 Other: # Unmeasured Voids 1 Musculoskeletal Right knee: NVDI, calf SNT, negative olya sign. DP palpable, able to wiggle toes/ankle movement without difficulty. CRISTINA dressing clean dry and intact. Discharge Data Allergies Allergy/AdvReac Type Severity Reaction Status Date / Time No Known Allergies Allergy Verified 05/15/23 07:16 Consultations 05/15/23 11:58 Consult Hospitalist Routine Procedures Performed Operation Date: 05/15/23 08:25 Actual Procedures p Right Total Knee Arthroplasty(Right) - Jackson Vargas DO Ordered Studies 05/15/23 05:00 US - OR guided needle placemen Routine Hospital Course (1) History of total right knee replacement: POD #1 s/p Right TKA pt/ot dvt proph with JUDY/SCD/resume Eliquis plan for d/c home with HHPT Total Time Total Time Spent Total Time Spent (In Minutes): 20 Discharge Plan Discharge Items Patient Disposition: Home - Home Health Services Reason For Visit: Right Knee Osteoarthritis Discharge Diagnosis: right total knee replacement Activity: Per Instructions section Weightbearing Comment: WBAT with walker Non-emergency contact: Surgeon Call non-emergency contact if: you have any medication questions, your temperature is above 101, your wound has increased redness, your wound has increased drainage and your wound pain has increased Follow-up/Referrals: Raciel Arana M.D. [Primary Care Provider] - Diet: Carb Consistent or DM2 Addtl Attending Provider Instructions: ACTIVITY RECOMMENDATIONS: SELF CARE INSTRUCTIONS AFTER TOTAL KNEE REPLACEMENT A. You may need to continue a physical therapy program after discharge from the hospital. There are several options available to you. Your doctor will assist you in selecting the best one for you. 1. An out-patient facility 2 to 3 times a week for therapy or home therapy. 2. Continue working on all exercises taught to you in the hospital. Your goals should be to increase bending of your knee to 90 degrees and beyond and to fully straighten your knee. B. You may progress at your own pace from walking with a walker or crutches to a cane; then to no assistive devices. C. Make walking a part of your daily routine. Be up as much as comfortable with rest periods throughout the day. Rest with leg elevation is very important. Use the ice wrap frequently for the first 3-4 weeks. D. There are no restrictions on activities. You may ride in a car, shop, participate in manager integration and all social activities. E. Wear the long elastic stockings (JUDY hose) 20 hours a day for 2 weeks after surgery. They can be removed several times a day for laundering and for a bath. F. You may shower, no tub baths until cleared by your doctor. SPECIAL CARE INSTRUCTIONS: VERY IMPORTANT TO READ AND REVIEW A. There are a few signs you need to watch for after you are home. Call [facility] if you notice any of the followin. Increased severe knee pain. Some pain is expected especially when you exercise. 2. Increased swelling in your leg or knee; pain or swelling of the calf muscle in either lower leg. 3. Any fluid drainage from the incision. 4. Shortness of breath or chest pain. B. Please call [facility] at if you have any concerns or questions about your operation or recovery. The doctor or his nurse will return your call promptly. C. You must take antibiotics before dental work, bladder, bowel or other surgery. Your doctor will provide you with a permanent care to carry describing this precaution. IMPORTANT: * REMEMBER TO TAKE ASPIRIN, 81 MG, TWICE DAILY FOR 4 WEEKS UNLESS OTHERWISE DIRECTED. THIS IS YOUR BLOOD THINNER. * HIGH RISK PATIENTS MAY BE PRESCRIBED A STRONGER BLOOD THINNER. THIS WILL BE PROVIDED AT DISCHARGE. * CALL IF INCREASED PAIN, REDNESS, DRAINAGE OR FEVER GREATER THAT 101. * WEAR JUDY HOSE 20 HOURS PER DAY FOR 2 WEEKS. CRISTINA Dressing- This is a large suction dressing covering your incision. This will help pull any excess drainage from the wound and allow your incision to heal properly. You may shower with this if you can keep the unit outside of the shower. If any bleeding or leakage is noted please call your doctor's office. This will remain on your incision for 7 days and then should be removed. This can be done yourself or by the home nursing staff if applicable. The entire unit is disposable once removed. Once removed, keep incision clean and dry. If redness or drainage is noted, please call your surgeon. FOLLOW UP VISIT: If appointment is not already scheduled: Please call [facility] to make a follow-up appointment for 2 weeks after your surgery at . Pending Studies at Discharge: No Stand-Alone Forms: My [facility] Medications and DC Order Prescriptions: New acetaminophen 500 mg tablet 1,000 mg PO Q8 21 Days Qty: 126 0RF cefadroxil 500 mg capsule 500 mg PO BID 14 Days Qty: 28 0RF docusate sodium 100 mg Capsule 100 mg PO BID Qty: 20 0RF oxycodone 5 mg tablet 5 - 10 mg PO Q6H PRN (Reason: pain) Qty: 30 0RF Rx Instructions: ongoing therapy, supervising dr sabrina vargas. max 6 tabs in 24 hours Continued atorvastatin [Lipitor] 40 mg Tablet 40 mg PO QAM metformin 500 mg Tablet 500 mg PO BID amlodipine [Norvasc] 10 mg Tablet 10 mg PO QAM levothyroxine 50 mcg Tablet 50 mcg PO QAM losartan [Cozaar] 25 mg Tablet 25 mg PO QAM Eliquis 5 mg Tablet 5 mg PO BID Admission Data Admit Date/Time: 05/15/23 10:42 Attending Provider: Jackson Vargas Admit Provider: Jackson Vargas Primary Care Provider: Raciel Arana Other Providers: Sterling Oseguera Coding Level of Care Code 80002 INP/OBS DISCH >30 MIN Diagnoses History of total right knee replacement Z96.651
[2023-05-16] MEDS: DOCUSATE SODIUM 100 MG CAP PO SCH (08:16)
[2023-05-16] MEDS: INSULIN ASPART PER UNIT CHARGE SC SCH ×2 (08:35→12:13)
[2023-05-16] MEDS ORDERED: ATORVASTATIN 40 MG TAB PO SCH (09:00)
[2023-05-16] MEDS ORDERED: LOSARTAN POTASSIUM 25 MG TAB PO SCH (09:00)
[2023-05-16] MEDS ORDERED: APIXABAN 5 MG TABLET PO SCH (09:00)
[2023-05-16] MEDS ORDERED: amLODIPine BESYLATE 5 MG TAB PO SCH (09:00)
[2023-05-16] MEDS ORDERED: CeleBREX 200 MG CAP PO SCH (09:00)
[2023-05-16] MEDS ORDERED: MULTIVITAMIN TAB PO SCH (09:00)
--- NOTE | 2023-05-16 09:15 | Hospitalist Progress Note ---
Date of Service May 16, 2023 Assessment & Plan (1) S/P right knee surgery: Plan: Right total knee arthroplasty with Dr. Ferrara on 05/15/2023 - Perioperative antibiotics, DVT PPx, pain management, and fluids per primary team Hgb stable 12.3, elevated WBC 15 - likely reactive/steroids Electrolytes WNL PT/OT (2) DM type 2 (diabetes mellitus, type 2): Plan: Last A1c at 5.9% on 04/16/2023 Agree with decision to hold metformin while inpatient --> resume at discharge Added BSG ACHS while inpatient (3) Hypothyroidism: Plan: Continue levothyroxine (4) HTN (hypertension): Plan: Recommend holding amlodipine x 1 day, and restarting on 05/17 Continue losartan (5) Atrial fibrillation: Plan: Rate controlled SCDs/teds for now; okay from medical standpoint to restart apixaban tomorrow on 05/16 (6) HLD (hyperlipidemia): Plan: Continue atorvastatin Plan Dispo: medically stable, resume amlodipine 05/17 Thank you for allowing us to participate in the care of this patient, please reach out with any questions or concerns. Admission and Anticipated Discharge Date Admission Date: May 15, 2023 Subjective Patient seen sitting up on the side of the bed, had difficulty working with therapy yesterday. Good appetite. No bowel movement yet. States her swelling is chronic and reports "cankles" Review of Systems Review of Systems: All systems reviewed & are unremarkable except as noted in Subjective Physical Exam Physical Exam: General: siting up on the side of the bed, NAD, VS as above Resp: normal respiratory effort, lungs clear to auscultation CV: RRR, no murmur, Abd: non tender, no hepatosplenomegaly Extremities: Moves all extremities, UE edema, watch on right wrist tight to skin, pt reports this is her baseline. Moderate edema lower extremities, non pitting. Alber wrap to Right knee Neuro: A&O x3, Results & Data Results & Data Vital Signs (Past 12 Hours) Vital Signs Temp Pulse Resp BP Pulse Ox O2 Del Method 05/16/23 07:15 36.5 C 73 16 118/75 98 Room Air 05/16/23 03:28 36.5 C 65 16 117/60 94 Room Air 05/15/23 23:36 36.5 C 64 16 99/60 L 95 Room Air Laboratory Results CBC and chemsistry reviewed PG Care Time/CCT Total # of Minutes Spent Total Time Spent with Patient: Total time spent is greater than 50% in coordination of care (as documented) at patient's floor/unit and/or counseling patient: Coding Level of Care Code 10338 SUB INP/OBS CARE 2/35MIN Diagnoses S/P right knee surgery Z98.890 DM type 2 (diabetes mellitus, type 2) E11.9 Hypothyroidism E03.9 HTN (hypertension) I10 Atrial fibrillation I48.91 HLD (hyperlipidemia) E78.5
--- NOTE | 2023-05-16 11:38 | Pharmacy Report ---
Pharmacy Glycemic Short Note 2 - Date of Service May 16, 2023 - Glycemic Short BSG Results (Last 24 hours): 05/15/23 05/15/23 05/15/23 11:51 16:22 20:49 Glucose POC Glucose 176 H 186 H 261 H 05/16/23 05/16/23 05/16/23 05:29 07:24 11:14 Glucose 156 H POC Glucose 156 H 146 H OUTPATIENT ANTIDIABETIC REGIMEN: * Metformin 500 mg PO BID * HbA1c = 5.9% on 04/16/23 ASSESSMENT: 05/16: * Patient received total 28 units of insulin yesterday; 10 units basal and 18 units bolus. * BSGs yesterday were [phone] mg/dl. They trended up due to effect of IV steroid dose that was given in the OR yesterday AM. * Renal function normal and patient eating. * Will loosen Novolog parameters this evening for dinner and resume Metformin home dose at that time. 05/15/23: * 77 y/o F admitted for R TKA today. She has history of Type 2 diabetes well controlled on oral Metformin only at home. * Patient received IV Dexamethasone 10 mg x 1 dose this AM pre-op. Expecting BSGs to rise later today. * Novolog ordered with lunch today with loose parameters (stress between 1 and 2). * Basal insulin ordered on a scale based on BSG with dinner today. PLAN FOR INPATIENT GLYCEMIC CONTROL: * Resume Metformin 500 mg PO BID with meals at dinner today. * Basal insulin * Hold * Bolus insulin * NovoLog per scale ACHS or Q6hrs while NPO * Goal Range: Low 110 mg/dL - High 140 mg/dL * Correction Factor: 35 mg/dL/unit * Nutritional / Prandial insulin per carb ratio of 1 unit per __ grams CHO consumed
[2023-05-16] MEDS ORDERED: metFORMIN HCL 500 MG TAB PO SCH (17:00)
[2023-05-17] MEDS ORDERED: amLODIPine BESYLATE 5 MG TAB PO SCH (09:00)
== END 2023-05-16 13:32 | disposition home health service (06) ==
LOC: 3E 06:44 → ASU 06:44